=== PATIENT | female | born 1995 | race Caucasian/White ===

== ENCOUNTER 2016-08-21 06:34 | Emergency (ER) | payer OTHER ==
[~2016-08-21] VITALS: Ht 154.9 cm; Wt 63.0 kg
[~2016-08-21 06:34] MED LIST: ADVA115A INH; ALBU0.086 NEB; ALBU1AER INH; CETI10 PO; CLEAPOW6 PO; COEN200C4 PO; CULT10CA PO; DOCU1CAP39 PO; FAMO20 PO; IBUP-1116 PO; LEVE500S J-TUBE; LEXA10TA PO; METO25CR PO; OXYBXL5 PO; OXYC5 PO; PRED5SOL GT; PROM6.2518 PO; PROT40TA PO; QUEN12.5 GT; QUET50TA PO; RIBO100C PO; RIZA10TA4 PO; TAB-TAB PO; TUMS500C PO; TYLE500T PO; VITATAB11 PO; YAZ3TAB PO; ZOFR4TAB3 SL; [UNRECOGNIZED DRUG - CODE]; [UNRECOGNIZED DRUG - CODE] PO
[2016-08-21 06:36] VITALS: BP 121/77; PULSE 112; RESP 18; TEMP 98.4; O2SAT 98
[2016-08-21] MEDS ORDERED: MORPHINE SULFATE 4 MG/ML INJ IV PUSH ONE (07:45)
[2016-08-21] MEDS ORDERED: ONDANSETRON HCL 4 MG/2 ML VIAL IV ONE (07:45)
--- NOTE | 2016-08-21 07:54 | PD ---
HPI Chief Complaint: Complaint Time Seen by Provider: 07:28 Travel History International Travel<30 days: No Contact w/Intl Traveler<30days: No Traveled to known affect area: No History of Present Illness HPI The patient was seen and examined in the presence of the nurse. This patient is a complicated medical history at age 21. She is either dialysis and a port and gastroparesis and a feeding tube that she uses for supplementation. She had surgery at [facility] 2 weeks ago to allow her to do periodic catheterizations of her bladder through the abdominal wall. She has an indwelling Rosario catheter that she planned to stay until August 31. She recently developed some bladder spasms and oxybutynin was called in. Also called in was Bactrim but she has not filled that yet. She developed some visible hematuria in the bladder catheter bag which worried them. So combination of suprapubic discomfort and visible blood in the bag caused her to come in today. No documented fever. No vomiting or diarrhea. Severity is moderate. Duration 3 days. No alleviating factors. PFSH Past Medical History Hx Anticoagulant Therapy: Yes (HEPARIN) Asthma: Yes (hx of asthma per pt) Autoimmune Disease: No Anxiety: Yes Depression: Yes Heart Rhythm Problems: No Cardiovascular Problems: Yes (CHRONIC TACHYCARDIA) Chest Pain: No Cystic Fibrosis: No Developmental Delay: No Diminished Hearing: Yes Fibromyalgia: Yes Gastrointestinal Disorders: Yes (GERD, GASTROPARESIS) GERD: Yes Genitourinary: Yes Headaches: Yes Hiatal Hernia: No Implanted Vascular Access Dvce: Yes (POWER PORT) Medical other: Yes (GERD) Musculoskeletal: Yes (hyperlordosis per pt, uses crutches for walking, ehler's donlos syndrome) Neurologic: Yes Psychiatric: Yes (hx of anxiety, depression and obsessive compulsive disorder per pt) Respiratory: Yes (ASTHMA) Immunizations Current: Yes Migraines: Yes (hx of migraines) Seizures: Yes (hx of seizures per pt) Sleep Apnea: No Ulcer: No ?: Not LMP: IRREG : 0 Past Surgical History Abdominal Surgery: Yes (upper gi scope / GASTRIC STIMULATOR) Cardiac Surgery: No Ear Surgery: No Endocrine Surgery: No Eye Surgery: No Genitourinary Surgery: Yes (MITROPHENOF PROCEDURE ON BLADDER) Gynecologic Surgery: No Neurologic Surgery: No Oral Surgery: Yes (19 teeth removed) Pacemaker: No Thoracic Surgery: No Other Surgery: Yes (L wrist, L knee, upper gi scope) Social History Alcohol Use: No Tobacco Use: No Substance Use: No Allergies-Medications (Allergen,Severity, Reaction): Coded Allergies: Cephalosporins (Verified Allergy, Severe, ANAPHYLAXIS, 08/21/16) Formaldehyde (Verified Allergy, Severe, Shortness of Breath, 08/21/16) Kiwi (Verified Allergy, Severe, MOUTH SWELLING, 08/21/16) Latex (Verified Allergy, Severe, Shortness of Breath, 08/21/16) Levaquin (Verified Allergy, Severe, Hypotension, 08/21/16) Nut Tree (Verified Allergy, Severe, HIVES/MOUTH BLISTERS, 08/21/16) Quinolones (Verified Allergy, Severe, Hypotension, 08/21/16) Reglan (Verified Allergy, Severe, THROAT SWELLING, 08/21/16) Peanut (Verified Allergy, Intermediate, DIGESTIVE, 08/21/16) Soybean (Verified Allergy, Intermediate, DIGESTIVE DISSORDERS, 08/21/16) Gluten (Verified Adverse Reaction, Intermediate, Nausea/Vomiting, 08/21/16) Lactose (Verified Adverse Reaction, Intermediate, Nausea/Vomiting, 08/21/16 ) Uncoded Allergies: TEGADERM (Allergy, Severe, Hives, 11/03/15) Reported Meds & Prescriptions Reported Meds & Active Scripts Active Roxicodone 5 Mg Tab (Oxycodone HCl) 5 Mg Tab 5 Mg PO Q6H PRN Zofran ODT (Ondansetron HCl) 4 Mg Tab 4 Mg SL Q6H PRN FOR NAUSEA/VOMITING Prednisone 5 Mg/5 Ml Antonia 20 Mg GT DAILY 3 Days Benadryl Allergy Children (Diphenhydramine HCl) 12.5 Mg/5 Ml Liq 25 Mg GT Q6 PRN 5 Days Reported Zyrtec 10 Mg Tab (Cetirizine HCl) 10 Mg Tab 10 Mg PO DAILY Tums (Calcium Carbonate) 500 Mg Chew 500 Mg PO DIRECTED PRN Rizatriptan Benzoate 10 Mg Tab 10 Mg PO DIRECTED PRN Take 1 tablet at onset of migraine-may repeat in 2hrs Not to exceed 3 tablets/24hrs Riboflavin Unknown Strength Cap 1 Cap PO DAILY Phenergan (Promethazine HCl) 6.25 Mg/5 Ml Syp 12.5 Mg PO Q4H PRN Glycolax (Polyethylene Glycol 3350) 3,350 Nf Pow 17 Gm PO DAILY Mix 1 capful (17gm) in 8oz of fluid-Titrate as needed Pepcid 20 Mg Tab (Famotidine) 20 Mg Tab 20 Mg PO DAILY Protonix (Pantoprazole Sodium) 40 Mg Tabdr 40 Mg PO DAILY Ditropan XL 5 mg (Oxybutynin Chloride) 5 Mg Theron 5 Mg PO DAILY Furadantin (Nitrofurantoin) 25 Mg/5 Ml Shonna 25 Mg PO DAILY Magnesium Glycinate (Magnesium Glycinate (Bulk)) Pow DAILY Keppra Antonia (Levetriacetam) 100 Mg/Ml Antonia 500 Mg J-TUBE BID Culturelle (Lactobacillus Rhamnosus (GG)) 10 B Cap 1 Cap PO BID Quetiapine Fumarate 50 mg (Quetiapine Fumarate) 50 Mg Tab 50 Mg PO DAILY Metoprolol Succinate ER 25 mg (Metoprolol Succinate) 25 Mg Tab 25 Mg PO DAILY Advil 200 Mg Tab (Ibuprofen) 200 Mg Tab 400 Mg PO Q4H PRN Lexapro (Escitalopram Oxalate) 10 Mg Tab 10 Mg PO DAILY Colace 100 Mg Cap (Docusate Sodium) 100 Mg Cap 100 Mg PO BID Kelsey (Drospirenone-Ethinyl Estradiol) 1 Tab Tab 1 Tab PO DAILY Coenzyme Q-10 (Coenzyme Q10 (Ubidecarenone)) 200 Mg Cap 200 Mg PO DAILY Vitamin B Complex (B-Complex Vitamins) Tab 1 Tab PO DAILY Tylenol (Acetaminophen) 500 Mg Tab 500 Mg PO Q6H PRN Proventil Ud 0.083% (2.5 Mg/3 Ml) (Albuterol Sulfate) 2.5 Mg/3 Ml Inha 2.5 Mg NEB Q6HR PRN Proair Hfa (Albuterol Sulfate) 8.5 Gm Aero 1 Puff INH Q4 PRN * SHAKE WELL BEFORE USE * Multivitamin (Multivitamins) 1 Tab Tab 1 Tab PO DAILY WITH BREAKFAST Advair Hfa 115/21 (Fluticasone-Salmeterol HFA 115 mcg/21 mcg) 115 /21 Aer 2 Puff INH BID Review of Systems General / Constitutional: No: Fever Eyes: No: Visual changes HENT: No: Headaches Cardiovascular: Positive: Tachycardia, No: Chest Pain or Discomfort Respiratory: No: Shortness of Breath Gastrointestinal: Positive: Abdominal Pain Genitourinary: Positive: Hematuria, No: Dysuria Musculoskeletal: No: Pain Skin: No Rash Neurologic: No: Weakness Psychiatric: No: Depression Endocrine: No: Polydipsia Hematologic/Lymphatic: No: Easy Bruising Physical Exam Narrative GENERAL: Well-nourished, well-developed patient in no apparent distress. SKIN: Warm and dry. HEAD: Atraumatic. Normocephalic. EYES: Pupils equal and round. No scleral icterus. No injection or drainage. ENT: No nasal bleeding or discharge. Mucous membranes pink and moist. NECK: Trachea midline. No JVD. CARDIOVASCULAR: Regular rate and rhythm. No murmur appreciated. RESPIRATORY: No accessory muscle use. Clear to auscultation. Breath sounds equal bilaterally. GASTROINTESTINAL: Abdomen soft, there is a feeding tube in place. There is a catheter near the umbilicus which is newly placed. There is a suprapubic incision with some Steri-Strips. There is a minimal area of minor dehiscence over the last 2 cm of the incision. No drainage or sign of infection there. Hepatic and splenic margins not palpable. MUSCULOSKELETAL: No obvious deformities. No clubbing. No cyanosis. No edema. NEUROLOGICAL: Awake and alert. No obvious cranial nerve deficits. Motor grossly within normal limits. Normal speech. PSYCHIATRIC: Appropriate mood and affect; insight and judgment normal. Rosario catheter bag is 800 cc of yellow urine with no visible blood or blood clots Data Data Last Documented VS Vital Signs Date Time Temp Pulse Resp B/P Pulse Ox O2 Delivery O2 Flow Rate FiO2 08/21/16 06:36 98.4 112 18 121/77 98 Orders Urinalysis - C+S If Indicated (08/21/16 07:45) Complete Blood Count With Diff (08/21/16 07:45) Basic Metabolic Panel (Bmp) (08/21/16 07:45) Ondansetron Inj (Zofran Inj) (08/21/16 07:45) Morphine Inj (Morphine Inj) (08/21/16 07:45) Urine Culture (08/21/16 08:00) Labs Laboratory Tests Test 08/21/16 08:00 White Blood Count 8.6 TH/MM3 Red Blood Count 4.14 MIL/MM3 Hemoglobin 10.3 GM/DL Hematocrit 31.5 % Mean Corpuscular Volume 76.1 FL Mean Corpuscular Hemoglobin 24.8 PG Mean Corpuscular Hemoglobin 32.6 % Concent Red Cell Distribution Width 14.9 % Platelet Count 755 TH/MM3 Mean Platelet Volume 7.0 FL Neutrophils (%) (Auto) 77.4 % Lymphocytes (%) (Auto) 13.8 % Monocytes (%) (Auto) 7.2 % Eosinophils (%) (Auto) 1.0 % Basophils (%) (Auto) 0.6 % Neutrophils # (Auto) 6.6 TH/MM3 Lymphocytes # (Auto) 1.2 TH/MM3 Monocytes # (Auto) 0.6 TH/MM3 Eosinophils # (Auto) 0.1 TH/MM3 Basophils # (Auto) 0.1 TH/MM3 CBC Comment AUTO DIFF Differential Comment AUTO DIFF CONFIRMED Urine Color YELLOW Urine Turbidity HAZY Urine pH 8.0 Urine Specific [place] 1.013 Urine Protein 100 mg/dL Urine Glucose (UA) NEG mg/dL Urine Ketones NEG mg/dL Urine Occult Blood LARGE Urine Nitrite POS Urine Bilirubin NEG Urine Urobilinogen LESS THAN 2.0 MG/DL Urine Leukocyte Esterase LARGE Urine RBC /hpf Urine WBC /hpf Urine WBC Clumps MANY Urine Squamous Epithelial 3 /hpf Cells Urine Transitional Epithelial 2 /hpf Cells Urine Bacteria MANY /hpf Urine Mucus MANY /lpf Urine Yeast (Budding) MOD Microscopic Urinalysis Comment CATH-CULTURE IND Sodium Level 140 MEQ/L Potassium Level 3.9 MEQ/L Chloride Level 104 MEQ/L Carbon Dioxide Level 26.7 MEQ/L Anion Gap 9 MEQ/L Blood Urea Nitrogen 6 MG/DL Creatinine 0.73 MG/DL Estimat Glomerular Filtration 102 ML/MIN Rate Random Glucose 109 MG/DL Calcium Level 9.0 MG/DL MDM Medical Decision Making Medical Screen Exam Complete: Yes Emergency Medical Condition: Yes Medical Record Reviewed: Yes Differential Diagnosis Postsurgical pain, wound dehiscence, cystitis Narrative Course I have reviewed the patient's electronic medical record. Patient was last here December [address] the abdomen at that time Patient has a port which is accessed CBC shows normal white count and mild anemia and elevated platelet count Metabolic profile is normal Urinalysis shows innumerable white and red cells and will be cultured I gave her a dose of morphine and Zofran for symptom relief Patient has a normal blood pressure and no fever. She has mild tachycardia which is chronic. Had a lengthy discussion with patient and mother. Did attempt to discuss with patient's personal physician a male but he is unavailable and not production administrative assistant this weekend. I don't feel a covering physician who doesn't know the patient would be helpful. Patient is stable for outpatient follow-up. She will call there Tuesday to see if her appointment which is August 31 can be moved up. She will start her antibiotics I wrote her some Pyridium The dehiscence at the distal part of the incision is minor and there is no sign of infection. Diagnosis Primary Impression: Acute hemorrhagic cystitis Additional Impression: Postoperative pain Additional Instructions: Call Dr. Dunn Tuesday morning for follow-up recommendations Start antibiotics Med/Other Pt SpecificInfo: Prescription(s) given Scripts Phenazopyridine (Pyridium)200 Mg Ait376 Mg PO Q8H PRN (SPASM) #10 TAB Ref 0 Prov:Lincoln Chamorro MD 08/21/16 Disposition: 01 DISCHARGE HOME Condition: Stable Lincoln Chamorro MD Aug 21, 2016 07:54
[2016-08-21 08:30] LABS: AUTOMATED NEUTROPHIL # 6.6 TH/MM3 (1.8-7.7); BASOPHIL # 0.1 TH/MM3 (0-0.2); BASOPHIL % 0.6 % (0.0-2.0); EOSINOPHIL # 0.1 TH/MM3 (0-0.4); HEMATOCRIT 31.5 % (35.0-46.0); LYMPH % 13.8 % (9.0-44.0); LYMPHOCYTE # 1.2 TH/MM3 (1.0-4.8); MEAN CELL VOLUME 76.1 FL (80.0-100.0); MEAN CORPUSCULAR HEMOGLOBIN 24.8 PG (27.0-34.0); MEAN CORPUSCULAR HGB CONC 32.6 % (32.0-36.0); MONO % 7.2 % (0.0-8.0); NEUT % 77.4 % (16.0-70.0); PLATELET COUNT 755 TH/MM3 (150-450); RED BLOOD COUNT 4.14 MIL/MM3 (4.00-5.30); RED CELL DISTRIBUTION WIDTH 14.9 % (11.6-17.2); WHITE BLOOD COUNT 8.6 TH/MM3 (4.0-11.0)
[2016-08-21 08:31] LABS: HEMO FLAGS AUTO DIFF
[2016-08-21 08:39] LABS: BICARBONATE 26.7 MEQ/L (21.0-32.0); POTASSIUM 3.9 MEQ/L (3.5-5.1)
[2016-08-21 08:40] VITALS: BP 116/69; PULSE 77; RESP 16; O2SAT 98
[2016-08-21 09:01] LABS: SCAN/DIFF AUTO DIFF CONFIRMED
[2016-08-21 09:04] LABS: BACTERIA, URINE MANY /hpf; BLOOD, URINE LARGE (NEG); COMMENT (UR) CATH-CULTURE IND; CULTURE IF INDICATED CATH CULTURE IND; GLUCOSE,URINE NEG (NEG); KETONE, URINE NEG (NEG); MUCUS URINE MANY /lpf (OCC); NITRITE,URINE POS (NEG); SQUAMOUS EPITHELIAL CELL URINE 3 /hpf (0-5); TRANSITIONAL EPI CELLS, URINE 2 /hpf; URINE COLOR YELLOW (YELLW/STRAW)
[2016-08-21] MEDS ORDERED: PYRI200T4 PO (10:06)
== END 2016-08-21 10:55 | disposition home or self-care (01) ==
LOC: NEPE 06:34
DX: N30.00 Acute cystitis without hematuria (principal); G89.18 Other acute postprocedural pain; B96.20 Unspecified Escherichia coli [E. coli] as the cause of diseases classified elsewhere; R00.0 Tachycardia, unspecified; M79.7 Fibromyalgia; Z79.01 Long term (current) use of anticoagulants
CPT/HCPCS: 80048; 81001; 85025; 87077; 87086; 87186; 96374; 96375; 99283; J1642; J2270; J2405

== ENCOUNTER 2017-01-25 09:37 | Emergency (ER) | payer OTHER ==
[~2017-01-25 09:37] MED LIST changes: +PYRI200T4 PO
[2017-01-25 09:39] VITALS: BP 119/78; PULSE 128; RESP 18; TEMP 98.7; O2SAT 98
[2017-01-25] MEDS ORDERED: SODIUM CHLOR 0.9% 1000 ML INJ 1,000 ML IV ONE ×2 (10:08→12:15)
[2017-01-25] MEDS ORDERED: SODIUM CHLORIDE 0.9% FLUSH 10 ML FLUSH IVF PRN (10:15)
[2017-01-25] MEDS ORDERED: PANTOPRAZOLE SODIUM 40 MG VIAL IVP ONE (10:15)
[2017-01-25] MEDS ORDERED: HYDROmorphone HCL PF 1 MG/ML VIAL IVS ONE (10:15)
[2017-01-25] MEDS ORDERED: diphenhydrAMINE HCL 50 MG/ML VIAL IV PUSH ONE (10:15)
[2017-01-25] MEDS ORDERED: PROCHLORPERAZINE INJ 10 MG/2 ML VIAL IV PUSH ONE (10:15)
[2017-01-25 10:28] VITALS: BP 141/76; PULSE 124; RESP 18; O2SAT 97
[2017-01-25 10:51] LABS: AUTOMATED NEUTROPHIL # 6.9 TH/MM3 (1.8-7.7); BASOPHIL % 0.3 % (0.0-2.0); HEMATOCRIT 35.4 % (35.0-46.0); HEMO FLAGS DIFF FINAL; LYMPH % 8.1 % (9.0-44.0); LYMPHOCYTE # 0.6 TH/MM3 (1.0-4.8); MEAN CELL VOLUME 76.7 FL (80.0-100.0); MEAN CORPUSCULAR HEMOGLOBIN 25.2 PG (27.0-34.0); MEAN CORPUSCULAR HGB CONC 32.9 % (32.0-36.0); MONO % 3.9 % (0.0-8.0); NEUT % 87.7 % (16.0-70.0); PLATELET COUNT 393 TH/MM3 (150-450); RED BLOOD COUNT 4.62 MIL/MM3 (4.00-5.30); RED CELL DISTRIBUTION WIDTH 16.8 % (11.6-17.2); WHITE BLOOD COUNT 7.9 TH/MM3 (4.0-11.0)
--- NOTE | 2017-01-25 10:57 | PD ---
HPI . Vomiting Chief Complaint: GI Complaint Time Seen by Provider: 10:08 Travel History International Travel<30 days: No Contact w/Intl Traveler<30days: No Traveled to known affect area: No History of Present Illness HPI This patient presents with a chief complaint of vomiting. The acute onset this morning. Too numerous to count episodes. Unrelieved by Zofran, Phenergan and Compazine given via J-tube. She states that her sister was sick in the recent past with a GI virus. 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 This has caused gastroparesis which has necessitated a G-J-tube. Rates that she does take some oral nutrition but also takes nutrition via the J-tube. She uses G-tube to remove gastric contents when she is feeling bloated. PFSH Past Medical History Hx Anticoagulant Therapy: Yes (HEPARIN) Asthma: Yes (hx of asthma per pt) Autoimmune Disease: Yes (cleo-danlos syndrome) Anxiety: Yes Depression: Yes Heart Rhythm Problems: No Cardiovascular Problems: Yes (CHRONIC TACHYCARDIA) Chest Pain: No Cystic Fibrosis: No Developmental Delay: No Diminished Hearing: Yes Fibromyalgia: Yes Gastrointestinal Disorders: Yes (GERD, GASTROPARESIS) GERD: Yes Genitourinary: Yes Headaches: Yes Hiatal Hernia: No Hypertension: No Implanted Vascular Access Dvce: Yes (POWER PORT) Medical other: Yes (GERD) Musculoskeletal: Yes (hyperlordosis per pt, uses crutches for walking, ehler's donlos syndrome) Neurologic: Yes Psychiatric: Yes (hx of anxiety, depression and obsessive compulsive disorder per pt) Respiratory: Yes (ASTHMA) Immunizations Current: Yes Migraines: Yes (hx of migraines) Seizures: Yes (hx of seizures per pt) Sleep Apnea: No Ulcer: No ?: Not : 0 Past Surgical History Abdominal Surgery: Yes (upper gi scope / GASTRIC STIMULATOR) Cardiac Surgery: No Ear Surgery: No Endocrine Surgery: No Eye Surgery: No Genitourinary Surgery: Yes (MITROPHENOF PROCEDURE ON BLADDER) Gynecologic Surgery: No Neurologic Surgery: No Oral Surgery: Yes (19 teeth removed) Pacemaker: No Thoracic Surgery: No Other Surgery: Yes (L wrist, L knee, upper gi scope) Social History Alcohol Use: No Tobacco Use: No Substance Use: No Allergies-Medications (Allergen,Severity, Reaction): Coded Allergies: cefepime (Unverified Allergy, Severe, ANAPHYLAXIS, 01/12/17) ceftaroline fosamil (Unverified Allergy, Severe, ANAPHYLAXIS, 01/12/17) ciprofloxacin (Unverified Allergy, Severe, Hypotension, 01/12/17) formaldehyde (Unverified Allergy, Severe, Shortness of Breath, 01/12/17) kiwi (Unverified Allergy, Severe, MOUTH SWELLING, 01/12/17) latex (Unverified Allergy, Severe, Shortness of Breath, 01/12/17) levofloxacin (Unverified Allergy, Severe, Hypotension, 01/12/17) metoclopramide (Unverified Allergy, Severe, THROAT SWELLING, 01/12/17) tree nut (Unverified Allergy, Severe, HIVES/MOUTH BLISTERS, 01/12/17) ipratropium (Unverified Allergy, Intermediate, DIGESTIVE, 01/12/17) prochlorperazine (Verified Allergy, Intermediate, 01/25/17) cannot have IV, only PO soybean (Unverified Allergy, Intermediate, DIGESTIVE DISSORDERS, 01/12/17) gluten (Unverified Adverse Reaction, Intermediate, Nausea/Vomiting, ) lactose (Unverified Adverse Reaction, Intermediate, Nausea/Vomiting, ) Uncoded Allergies: TEGADERM (Allergy, Severe, Hives, 11/03/15) Reported Meds & Prescriptions Reported Meds & Active Scripts Active Pyridium (Phenazopyridine HCl) 200 Mg Tab 200 Mg PO Q8H PRN Roxicodone 5 Mg Tab (Oxycodone HCl) 5 Mg Tab 5 Mg PO Q6H PRN Zofran ODT (Ondansetron HCl) 4 Mg Tab 4 Mg SL Q6H PRN FOR NAUSEA/VOMITING Prednisone 5 Mg/5 Ml Antonia 20 Mg GT DAILY 3 Days Benadryl Allergy (Diphenhydramine HCl) 12.5 Mg/5 Ml Liq 25 Mg GT Q6 PRN 5 Days Reported Zyrtec 10 Mg Tab (Cetirizine HCl) 10 Mg Tab 10 Mg PO DAILY Tums (Calcium Carbonate) 500 Mg Chew 500 Mg PO DIRECTED PRN Rizatriptan Benzoate 10 Mg Tab 10 Mg PO DIRECTED PRN Take 1 tablet at onset of migraine-may repeat in 2hrs Not to exceed 3 tablets/24hrs Riboflavin Unknown Strength Cap 1 Cap PO DAILY Promethazine HCl 6.25 Mg/5 Ml Syp 12.5 Mg PO Q4H PRN Glycolax (Polyethylene Glycol 3350) 3,350 Nf Pow 17 Gm PO DAILY Mix 1 capful (17gm) in 8oz of fluid-Titrate as needed Pepcid 20 Mg Tab (Famotidine) 20 Mg Tab 20 Mg PO DAILY Protonix (Pantoprazole Sodium) 40 Mg Tabdr 40 Mg PO DAILY Ditropan XL 5 mg (Oxybutynin Chloride) 5 Mg Theron 5 Mg PO DAILY Furadantin (Nitrofurantoin) 25 Mg/5 Ml Shonna 25 Mg PO DAILY Magnesium Glycinate (Magnesium Glycinate (Bulk)) Pow DAILY Keppra Antonia (Levetriacetam) 100 Mg/Ml Antonia 500 Mg J-TUBE BID Culturelle (Lactobacillus Rhamnosus (GG)) 10 B Cap 1 Cap PO BID Quetiapine Fumarate 50 mg (Quetiapine Fumarate) 50 Mg Tab 50 Mg PO DAILY Metoprolol Succinate ER 25 mg (Metoprolol Succinate) 25 Mg Tab 25 Mg PO DAILY Advil 200 Mg Tab (Ibuprofen) 200 Mg Tab 400 Mg PO Q4H PRN Lexapro (Escitalopram Oxalate) 10 Mg Tab 10 Mg PO DAILY Colace 100 Mg Cap (Docusate Sodium) 100 Mg Cap 100 Mg PO BID Kelsey (Drospirenone-Ethinyl Estradiol) 1 Tab Tab 1 Tab PO DAILY Coenzyme Q-10 [place] Potenc (Coenzyme Q10 (Ubidecarenone)) 200 Mg Cap 200 Mg PO DAILY Vitamin B Complex (B-Complex Vitamins) Tab 1 Tab PO DAILY Acetaminophen 500 Mg Tab 500 Mg PO Q6H PRN Proventil Ud 0.083% (2.5 Mg/3 Ml) (Albuterol Sulfate) 2.5 Mg/3 Ml Inha 2.5 Mg NEB Q6HR PRN Proair Hfa (Albuterol Sulfate) 8.5 Gm Aero 1 Puff INH Q4 PRN * SHAKE WELL BEFORE USE * Multivitamin (Multivitamins) 1 Tab Tab 1 Tab PO DAILY WITH BREAKFAST Advair Hfa 115/21 (Fluticasone-Salmeterol HFA 115 mcg/21 mcg) 115 /21 Aer 2 Puff INH BID Review of Systems Except as stated in HPI: all other systems reviewed are Neg General / Constitutional: No: Fever, Chills Gastrointestinal: Positive: Nausea, Vomiting, Abdominal Pain, No: Diarrhea Genitourinary: Positive: Other (she currently has an ileal conduit. She has noted no change in the color of her urine.) Physical Exam Narrative GENERAL: Awake and alert and in no acute distress. SKIN: Warm and dry. HEAD: Atraumatic. Normocephalic. EYES: Pupils equal and round. Sclera are anicteric. ENT: No nasal bleeding or discharge. Mucous membranes pink and moist. NECK: Trachea midline. Neck is supple. CARDIOVASCULAR: Regular rate and rhythm. RESPIRATORY: No accessory muscle use. Lungs sound clear. GASTROINTESTINAL: Abdomen soft, non-tender, nondistended. She has the G-J-tube in the upper abdomen and an ileal conduit in the lower abdomen. MUSCULOSKELETAL: No obvious deformities. No edema. NEUROLOGICAL: Awake and alert. No obvious cranial nerve deficits. Lower extremity muscle weakness due to paraparesis secondary to a previous lumbar puncture. Normal speech. PSYCHIATRIC: Appropriate mood and affect; insight and judgment normal. Data Data Last Documented VS Vital Signs Date Time Temp Pulse Resp B/P (MAP) Pulse Ox O2 Delivery O2 Flow Rate FiO2 01/25/17 12:15 94 18 146/79 (101) 98 Room Air 01/25/17 09:39 98.7 Orders Orders Complete Blood Count With Diff (01/25/17 10:08) Basic Metabolic Panel (Bmp) (01/25/17 10:08) Abdomen, Flat & Upright (01/25/17 ) Iv Access Insert/Monitor (01/25/17 10:08) Pantoprazole Inj (Protonix Inj) (01/25/17 10:15) Sodium Chlor 0.9% 1000 Ml Inj (Ns 1000 M (01/25/17 10:08) Sodium Chloride 0.9% Flush (Ns Flush) (01/25/17 10:15) Hydromorphone Pf Inj (Dilaudid Pf Inj) (01/25/17 10:15) Ed Urine Pregnancytest Poc (01/25/17 10:08) Prochlorperazine Inj (Compazine Inj) (01/25/17 10:15) Diphenhydramine Inj (Benadryl Inj) (01/25/17 10:15) Urinalysis - C+S If Indicated (01/25/17 10:48) Haloperidol Inj (Haldol Inj) (01/25/17 11:00) Sodium Chlor 0.9% 1000 Ml Inj (Ns 1000 M (01/25/17 12:15) Hydromorphone Pf Inj (Dilaudid Pf Inj) (01/25/17 12:15) Labs Laboratory Tests Test 01/25/17 10:29 01/25/17 10:50 White Blood Count 7.9 TH/MM3 Red Blood Count 4.62 MIL/MM3 Hemoglobin 11.7 GM/DL Hematocrit 35.4 % Mean Corpuscular Volume 76.7 FL Mean Corpuscular Hemoglobin 25.2 PG Mean Corpuscular Hemoglobin Concent 32.9 % Red Cell Distribution Width 16.8 % Platelet Count 393 TH/MM3 Mean Platelet Volume 7.6 FL Neutrophils (%) (Auto) 87.7 % Lymphocytes (%) (Auto) 8.1 % Monocytes (%) (Auto) 3.9 % Eosinophils (%) (Auto) 0.0 % Basophils (%) (Auto) 0.3 % Neutrophils # (Auto) 6.9 TH/MM3 Lymphocytes # (Auto) 0.6 TH/MM3 Monocytes # (Auto) 0.3 TH/MM3 Eosinophils # (Auto) 0.0 TH/MM3 Basophils # (Auto) 0.0 TH/MM3 CBC Comment DIFF FINAL Differential Comment Blood Urea Nitrogen 6 MG/DL Creatinine 0.77 MG/DL Random Glucose 114 MG/DL Calcium Level 9.2 MG/DL Sodium Level 139 MEQ/L Potassium Level 3.9 MEQ/L Chloride Level 105 MEQ/L Carbon Dioxide Level 21.7 MEQ/L Anion Gap 12 MEQ/L Estimat Glomerular Filtration Rate 96 ML/MIN Urine Color LIGHT-YELLOW Urine Turbidity CLEAR Urine pH 8.0 Urine Specific [place] 1.003 Urine Protein TRACE mg/dL Urine Glucose (UA) NEG mg/dL Urine Ketones NEG mg/dL Urine Occult Blood MOD Urine Nitrite NEG Urine Bilirubin NEG Urine Urobilinogen LESS THAN 2.0 MG/DL Urine Leukocyte Esterase NEG Urine RBC 1 /hpf Urine WBC LESS THAN 1 /hpf Urine Mucus FEW /lpf Microscopic Urinalysis Comment CATH-CULT NOT IND MDM Medical Decision Making Medical Screen Exam Complete: Yes Emergency Medical Condition: Yes Medical Record Reviewed: Yes (Cleo-Danlos syndrome which has caused multiple GI and problems. 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 She has numerous drug and environmental and food allergies.) Differential Diagnosis Differential diagnosis includes but is not limited to viral gastritis, food poisoning, pancreatitis, pneumonia, hepatitis, acute coronary syndrome, Narrative Course This is a patient with multiple medical issues who presents with vomiting. Her vomiting was unrelieved by Zofran, Phenergan and Compazine prior to arrival. Those were all given her her J-tube. I ordered Compazine IV. The patient reports that she cannot take IV Compazine. I will give her IM Haldol for the vomiting. CBC & BMP Diagram 01/25/17 10:29 Calcium Level 9.2 X-ray>>Mildly distended gas-filled loops of small bowel within the left upper quadrant. This is a nonspecific pattern. No free air. UA>>neg for infection Diagnosis Primary Impression: Vomiting Qualified Codes: R11.2 - Nausea with vomiting, unspecified Patient Instructions: Acute Nausea and Vomiting (DC), General Instructions Disposition: 01 DISCHARGE HOME Condition: Stable Rebecca Maldonado MD Jan 25, 2017 10:57
[2017-01-25 11:00] LABS: BICARBONATE 21.7 MEQ/L (21.0-32.0); POTASSIUM 3.9 MEQ/L (3.5-5.1)
[2017-01-25] MEDS ORDERED: HALOPERIDOL LACTATE 5 MG/ML AMP IM ONE (11:00)
[2017-01-25 11:14] LABS: BLOOD, URINE MOD (NEG); COMMENT (UR) CATH-CULT NOT IND; CULTURE IF INDICATED CATH CULTURE NOT IND; GLUCOSE,URINE NEG (NEG); KETONE, URINE NEG (NEG); MUCUS URINE FEW /lpf (OCC); NITRITE,URINE NEG (NEG); URINE COLOR LIGHT-YELLOW (YELLW/STRAW)
--- NOTE | 2017-01-25 11:57 | RADRPT ---
EXAM DATE/TIME: 01/25/2017 11:37 [facility] COMPARISON: No previous studies available for comparison. INDICATIONS : Abdomen pain, nausea and vomiting. MEDICAL HISTORY : Gastroesophageal reflux disease. Asthma. Hyperlordosis per pt, ehler's donlos syndrome. fibromy algia,gerd, seizures, migraines. SURGICAL HISTORY : Bladder surgery 1 week ago. Gastric pacemaker. ENCOUNTER: Initial ACUITY: 1 day PAIN SCORE: 6/10 LOCATION: Bilateral Abdomen. FINDINGS: Supine and upright views of the abdomen show mildly distended loops of gas-filled small bowel within the left upper quadrant. Gas and stool is seen scattered throughout the colon including the level of the rectal vault. No pneumoperitoneum. Stomach is not distended. No air-fluid levels. An electronic d evice with leads overlies the left upper quadrant. No organomegaly. No calcifications. Bony structure s are unremarkable. CONCLUSION: Mildly distended gas-filled loops of small bowel within the left upper quadrant. This is a nonspecifi c pattern. No free air. Hemant Waldron Jr., MD on January 25, 2017 at 11:53 Board Certified Radiologist. This report was verified electronically.
[2017-01-25 12:15] VITALS: BP 146/79; PULSE 94; RESP 18; O2SAT 98
[2017-01-25] MEDS ORDERED: HYDROmorphone HCL PF 1 MG/ML VIAL IV PUSH ONE (12:15)
== END 2017-01-25 14:07 | disposition home or self-care (01) ==
LOC: NEPC 09:37
DX: R11.2 Nausea with vomiting, unspecified (principal); Q79.6 Ehlers-Danlos syndromes; K31.84 Gastroparesis; J45.909 Unspecified asthma, uncomplicated; M79.7 Fibromyalgia; K21.9 Gastro-esophageal reflux disease without esophagitis; F41.9 Anxiety disorder, unspecified; R56.9 Unspecified convulsions; Z43.1 Encounter for attention to gastrostomy
CPT/HCPCS: 74020; 80048; 81001; 84703; 85025; 96361; 96372; 96374; 96375; 96376; 99284; C9113; J1170; J1200; J1630; J7030

== ENCOUNTER 2017-05-25 02:00 | Emergency (ER) | payer OTHER ==
[~2017-05-25] VITALS: Ht 154.9 cm; Wt 67.0 kg
[2017-05-25 02:01] VITALS: BP 134/81; PULSE 102; RESP 16; TEMP 98.5; O2SAT 100
[2017-05-25 02:17] VITALS: BP 136/93; PULSE 102; RESP 18; O2SAT 100
--- NOTE | 2017-05-25 02:35 | PD ---
HPI Chief Complaint: Complaint Time Seen by Provider: 02:07 Travel History International Travel<30 days: No Contact w/Intl Traveler<30days: No Traveled to known affect area: No History of Present Illness HPI A 21-year-old presents to the ED multiple complaints. 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 She is in a wheelchair. She has leg braces. She has a stoma that she has intermittent soft cast her. She reports she is on long-term IV antibiotics for recurrent urinary tract infections. She also has gastroparesis that she attributes Cleo Danlos. She is on chronic opiates. She complains of pain in her chest and back unrelieved with her home opiates. She also describes profuse sweating as well as "temperature variation" and "heart rate unstable". History Past Medical History Narrative Medical As detailed in history of present illness Tetanus Vaccination: > 5 Years Influenza Vaccination: No LMP: 05-08-17 : 0 Social History Alcohol Use: No Tobacco Use: No Allergies-Medications (Allergen,Severity, Reaction): Coded Allergies: cefepime (Unverified Allergy, Severe, ANAPHYLAXIS, 01/12/17) ceftaroline fosamil (Unverified Allergy, Severe, ANAPHYLAXIS, 01/12/17) ciprofloxacin (Unverified Allergy, Severe, Hypotension, 01/12/17) formaldehyde (Unverified Allergy, Severe, Shortness of Breath, 01/12/17) kiwi (Unverified Allergy, Severe, MOUTH SWELLING, 01/12/17) latex (Unverified Allergy, Severe, Shortness of Breath, 01/12/17) levofloxacin (Unverified Allergy, Severe, Hypotension, 01/12/17) metoclopramide (Unverified Allergy, Severe, THROAT SWELLING, 01/12/17) tree nut (Unverified Allergy, Severe, HIVES/MOUTH BLISTERS, 01/12/17) ipratropium (Unverified Allergy, Intermediate, DIGESTIVE, 01/12/17) prochlorperazine (Verified Allergy, Intermediate, 01/25/17) cannot have IV, only PO soybean (Unverified Allergy, Intermediate, DIGESTIVE DISSORDERS, 01/12/17) gluten (Unverified Adverse Reaction, Intermediate, Nausea/Vomiting, ) lactose (Unverified Adverse Reaction, Intermediate, Nausea/Vomiting, ) Uncoded Allergies: TEGADERM (Allergy, Severe, Hives, 11/03/15) Reported Meds & Prescriptions Reported Meds & Active Scripts Active Pyridium (Phenazopyridine HCl) 200 Mg Tab 200 Mg PO Q8H PRN Roxicodone 5 Mg Tab (Oxycodone HCl) 5 Mg Tab 5 Mg PO Q6H PRN Zofran ODT (Ondansetron HCl) 4 Mg Tab 4 Mg SL Q6H PRN FOR NAUSEA/VOMITING Prednisone 5 Mg/5 Ml Antonia 20 Mg GT DAILY 3 Days Benadryl Allergy (Diphenhydramine HCl) 12.5 Mg/5 Ml Liq 25 Mg GT Q6 PRN 5 Days Reported Zyrtec 10 Mg Tab (Cetirizine HCl) 10 Mg Tab 10 Mg PO DAILY Tums (Calcium Carbonate) 500 Mg Chew 500 Mg PO DIRECTED PRN Rizatriptan Benzoate 10 Mg Tab 10 Mg PO DIRECTED PRN Take 1 tablet at onset of migraine-may repeat in 2hrs Not to exceed 3 tablets/24hrs Riboflavin Unknown Strength Cap 1 Cap PO DAILY Promethazine HCl 6.25 Mg/5 Ml Syp 12.5 Mg PO Q4H PRN Glycolax (Polyethylene Glycol 3350) 3,350 Nf Pow 17 Gm PO DAILY Mix 1 capful (17gm) in 8oz of fluid-Titrate as needed Pepcid 20 Mg Tab (Famotidine) 20 Mg Tab 20 Mg PO DAILY Protonix (Pantoprazole Sodium) 40 Mg Tabdr 40 Mg PO DAILY Ditropan XL 5 mg (Oxybutynin Chloride) 5 Mg Theron 5 Mg PO DAILY Furadantin (Nitrofurantoin) 25 Mg/5 Ml Shonna 25 Mg PO DAILY Magnesium Glycinate (Magnesium Glycinate (Bulk)) Pow DAILY Keppra Antonia (Levetriacetam) 100 Mg/Ml Antonia 500 Mg J-TUBE BID Culturelle (Lactobacillus Rhamnosus (GG)) 10 B Cap 1 Cap PO BID Quetiapine Fumarate 50 mg (Quetiapine Fumarate) 50 Mg Tab 50 Mg PO DAILY Metoprolol Succinate ER 25 mg (Metoprolol Succinate) 25 Mg Tab 25 Mg PO DAILY Advil 200 Mg Tab (Ibuprofen) 200 Mg Tab 400 Mg PO Q4H PRN Lexapro (Escitalopram Oxalate) 10 Mg Tab 10 Mg PO DAILY Colace 100 Mg Cap (Docusate Sodium) 100 Mg Cap 100 Mg PO BID Kelsey (Drospirenone-Ethinyl Estradiol) 1 Tab Tab 1 Tab PO DAILY Coenzyme Q-10 High Potenc (Coenzyme Q10 (Ubidecarenone)) 200 Mg Cap 200 Mg PO DAILY Vitamin B Complex (B-Complex Vitamins) Tab 1 Tab PO DAILY Acetaminophen 500 Mg Tab 500 Mg PO Q6H PRN Proventil Ud 0.083% (2.5 Mg/3 Ml) (Albuterol Sulfate) 2.5 Mg/3 Ml Inha 2.5 Mg NEB Q6HR PRN Proair Hfa (Albuterol Sulfate) 8.5 Gm Aero 1 Puff INH Q4 PRN * SHAKE WELL BEFORE USE * Multivitamin (Multivitamins) 1 Tab Tab 1 Tab PO DAILY WITH BREAKFAST Advair Hfa 115/21 (Fluticasone-Salmeterol HFA 115 mcg/21 mcg) 115 /21 Aer 2 Puff INH BID Review of Systems Except as stated in HPI: all other systems reviewed are Neg Physical Exam Narrative GENERAL: 21 year-old woman, no acute distress. SKIN: Focused skin assessment warm/dry. HEAD: Atraumatic. Normocephalic. CARDIOVASCULAR: Regular rate and rhythm. No murmur appreciated. RESPIRATORY: No accessory muscle use. Clear to auscultation. Breath sounds equal bilaterally. GASTROINTESTINAL: Abdomen soft, non-tender, nondistended. Hepatic and splenic margins not palpable. MUSCULOSKELETAL: No obvious deformities. Normal muscle bulk. NEUROLOGICAL: Awake and alert. No obvious cranial nerve deficits. Motor grossly within normal limits. Normal speech. PSYCHIATRIC: Appropriate mood and affect; insight and judgment normal. Data Data Last Documented VS Vital Signs Date Time Temp Pulse Resp B/P (MAP) Pulse Ox O2 Delivery O2 Flow Rate FiO2 05/25/17 02:17 102 18 136/93 (107) 100 Room Air 05/25/17 02:01 98.5 Orders Orders Basic Metabolic Panel (Bmp) (05/25/17 02:24) Complete Blood Count With Diff (05/25/17 02:24) Iv Access Insert/Monitor (05/25/17 02:24) Chest, Single Ap (05/25/17 ) Heparin Central Flush (Heparin Central F (05/25/17 02:30) Labs Laboratory Tests Test 05/25/17 02:40 White Blood Count 8.7 TH/MM3 Red Blood Count 4.83 MIL/MM3 Hemoglobin 14.0 GM/DL Hematocrit 39.6 % Mean Corpuscular Volume 82.1 FL Mean Corpuscular Hemoglobin 28.9 PG Mean Corpuscular Hemoglobin Concent 35.3 % Red Cell Distribution Width 14.7 % Platelet Count 327 TH/MM3 Mean Platelet Volume 7.3 FL Neutrophils (%) (Auto) 65.1 % Lymphocytes (%) (Auto) 25.0 % Monocytes (%) (Auto) 7.3 % Eosinophils (%) (Auto) 1.9 % Basophils (%) (Auto) 0.7 % Neutrophils # (Auto) 5.7 TH/MM3 Lymphocytes # (Auto) 2.2 TH/MM3 Monocytes # (Auto) 0.6 TH/MM3 Eosinophils # (Auto) 0.2 TH/MM3 Basophils # (Auto) 0.1 TH/MM3 CBC Comment DIFF FINAL Differential Comment Blood Urea Nitrogen 9 MG/DL Creatinine 0.76 MG/DL Random Glucose 85 MG/DL Calcium Level 8.7 MG/DL Sodium Level 138 MEQ/L Potassium Level 3.8 MEQ/L Chloride Level 106 MEQ/L Carbon Dioxide Level 24.9 MEQ/L Anion Gap 7 MEQ/L Estimat Glomerular Filtration Rate 97 ML/MIN MDM Medical Decision Making Medical Screen Exam Complete: Yes Emergency Medical Condition: Yes Interpretation(s) My review of chest x-ray: Unremarkable. Port appears to be in good position. LABS: CBC unremarkable BMP unremarkable. Differential Diagnosis Fevers, with weakness, sepsis or infection, other Narrative Course Medical decision making Is a very unusual 21 year-old woman. She is endorsing significant medical comorbidities all attributed to Cleo Danlos, but doesn't really all add up to me. She's wearing a cloth facemask and endorsing immune suppression but it's unclear why. 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 They apparently are also exhibiting to gastroparesis 2 her connective tissue disease. She is on chronic opiates. She is already talking about her pain being uncontrolled. She is on IV antibiotics at home. Possible she has some kind of neurogenic bladder she's had trouble with the LP complication. Nonetheless, given her complaint of why she is here today seems a little bit bizarre with accommodation of infectious complaints such as sweats shoulder and right ears, but also complaining of her back and chest be more painful, and she was worried about her infusion port not working properly. Nonetheless we can screen her for an emergency medical conditions, she has no fever, no abnormal heart rate, no other evidence of infection. We'll check CBC , we'll check a chest x-ray to make sure her port placement was correct. Otherwise she can follow up with her specialist regarding her multiple other comorbidities. Diagnosis Primary Impression: Chills Additional Impression: Chest pain Additional Instructions: Follow-up with her regular doctors. Return to the emergency department for any new or worsening symptoms Med/Other Pt SpecificInfo: No Change to Meds Disposition: 01 DISCHARGE HOME Condition: Stable Servando Redmond MD May 25, 2017 02:35
[2017-05-25 02:51] LABS: AUTOMATED NEUTROPHIL # 5.7 TH/MM3 (1.8-7.7); BASOPHIL # 0.1 TH/MM3 (0-0.2); BASOPHIL % 0.7 % (0.0-2.0); EOSINOPHIL # 0.2 TH/MM3 (0-0.4); EOSINOPHIL % 1.9 % (0.0-4.0); HEMATOCRIT 39.6 % (35.0-46.0); LYMPHOCYTE # 2.2 TH/MM3 (1.0-4.8); MEAN CELL VOLUME 82.1 FL (80.0-100.0); MEAN CORPUSCULAR HEMOGLOBIN 28.9 PG (27.0-34.0); MEAN CORPUSCULAR HGB CONC 35.3 % (32.0-36.0); MEAN PLATELET VOLUME 7.3 FL (7.0-11.0); MONO % 7.3 % (0.0-8.0); MONOCYTE # 0.6 TH/MM3 (0-0.9); NEUT % 65.1 % (16.0-70.0); PLATELET COUNT 327 TH/MM3 (150-450); RED BLOOD COUNT 4.83 MIL/MM3 (4.00-5.30); RED CELL DISTRIBUTION WIDTH 14.7 % (11.6-17.2); WHITE BLOOD COUNT 8.7 TH/MM3 (4.0-11.0)
[2017-05-25 03:22] LABS: BICARBONATE 24.9 MEQ/L (21.0-32.0); CALCIUM 8.7 MG/DL (8.5-10.1); CREATININE 0.76 MG/DL (0.50-1.00)
--- NOTE | 2017-05-25 03:23 | RADRPT ---
EXAM DATE/TIME: 05/25/2017 02:30 [facility] COMPARISON: CHEST SINGLE AP, November 08, 2015, 0:46. INDICATIONS : Port placement. MEDICAL HISTORY : Cleo Danlos Syndrome. Gastroparesis. Asthma. Seizures. SURGICAL HISTORY : [id number]. GJ tube. ENCOUNTER: Initial ACUITY: 1 day PAIN SCORE: 0/10 LOCATION: Left chest FINDINGS: The lungs are clear without infiltrate, nodule, or mass. There is no appreciable pleural effusion fo r technique. Heart and mediastinum are unremarkable. Left subclavian [id number] is present with t ip overlapping the expected region of the SVC. No definite pneumothorax is seen for technique. CONCLUSION: No acute cardiopulmonary disease. Dotty Oneal MD on May 25, 2017 at 3:21 Board Certified Radiologist. This report was verified electronically.
== END 2017-05-25 03:55 | disposition home or self-care (01) ==
LOC: NEPE 02:00
DX: R68.83 Chills (without fever) (principal); Q79.6 Ehlers-Danlos syndromes; K31.84 Gastroparesis
CPT/HCPCS: 71010; 80048; 85025; 99284; J1642